=== PATIENT | female | born 1975 | race Caucasian/White ===

== ENCOUNTER 2025-07-25 10:16 | Day surgery (SDC) | payer OTHER ==
[2025-07-24 10:07] LABS: Absolute Lymphocytes (CBC) 1.8 K/uL (0.7-4.9); Hematocrit 35.4 % (36.0-45.0); Hemoglobin 11.5 g/dL (12.0-15.0); MCH 24.5 pg (27.0-35.0); MCHC 32.5 g/dL (32.0-36.0); MCV 75.5 fL (80-100); MPV 6.8 fL (7.6-11.3); Nucleated RBC Absolute Count 0.0 (0-0); Nucleated Red Blood Cells % 0.0 % (0-0); RBC Red Blood Cell Count 4.69 M/uL (3.86-4.86); White Blood Count 8.80 thou/uL (4.3-10.9)
[2025-07-24 10:16] LABS: Sqamous Epithelial <5 /HPF (None Seen); Urine Culture Reflex Order NOT NEEDED; Urine Microscopic Reflex YN ORDER UMIC
[2025-07-24 10:23] LABS: Anion Gap 7.6 mEq/L (5.0-15.0); BUN Blood Urea Nitrogen 20.0 mg/dL (7-18); Glucose Level 88.0 mg/dL (74-106); Potassium 3.6 mEq/L (3.5-5.1)
[2025-07-25] MEDS: Ringers Lactate 1,000 ML IV ONE ×2 (10:43→13:20)
[2025-07-25] MEDS: SCOPOLAMINE HYDROBROMIDE PATCH TD ONE (10:48)
[2025-07-25] MEDS ORDERED: ONDANSETRON 4 MG/2 ML VIAL ONE (11:07)
[2025-07-25] MEDS ORDERED: ROCURONIUM 50 MG/5 ML VIAL IV ONE (11:07)
[2025-07-25] MEDS ORDERED: KETAMINE HCL IN 0.9 % NACL 50 MG/5 ML SYRINGE IV ONE (11:07)
[2025-07-25] MEDS ORDERED: LIDOCAINE 1% MPF 5 ML VIAL ONE (11:07)
[2025-07-25] MEDS ORDERED: FENTANYL CITR 250 MCG/5 ML ONE (11:08)
[2025-07-25] MEDS ORDERED: MIDAZOLAM HCL 2 MG/2 ML INJ ONE (11:08)
[2025-07-25] MEDS: CEFAZOLIN SODIUM 2 GM/VIAL ONE (12:04)
[2025-07-25] MEDS: BUPIVACAINE 0.25% PF 30 ML VIAL ONE (12:36)
[2025-07-25] MEDS ORDERED: Mastisol Adhesive Liq ONE (13:10)
[2025-07-25] MEDS ORDERED: KETOROLAC 30 MG/ML INJ ONE (13:28)
[2025-07-25] MEDS: PROMETHAZINE INJ 25 MG/ML AMP ONE (14:33)
[2025-07-25 15:33] VITALS: BP 146/73; TEMP 97.2
[2025-07-25] MEDS: TRAMADOL HCL 50 MG TAB ONE (16:20)
[2025-07-25 17:03] VITALS: O2SAT 97
--- NOTE | 2025-07-25 21:41 | OP ---
Date of Procedure: 07/25/2025 Surgeon: Elinor Castillo MD Leather Piece Inspector: Mera Almazan. Preoperative Diagnosis: Postmenopausal bleeding. Postoperative Diagnosis: Postmenopausal bleeding. Procedure Performed: Total laparoscopic hysterectomy. Anesthesia: General endotracheal. Specimens: Uterus. Complications: No complications. Drains: No drains. Condition: The patient's condition is stable. Estimated Blood Loss: 25. Findings: No ovaries or tubes. Uterus small, mostly unremarkable. Abdomen, some bowel adhesions to the anterior abdominal wall. Indications: The patient is a 50-year-old, status post bilateral salpingo-oophorectomy, on hormonal therapy, started to have postmenopausal bleeding. Endometrium was slightly thickened. Endometrial s ampling was performed. However, there was no adequate tissue for evaluation. Discussed all the bene fits and risks including observation with followup using ultrasound and clinically versus hysterectom y. The patient wants to continue hormonal therapy safely and this was not postop and she has been consented. Description Of Procedure: In the preoperative area, she was reconsented. Her was present as well. After all their questions and answers were done to their satisfaction, she was taken back to the OR. She was placed in a supine fashion on the operating table. General anesthesia was given. 2 g of Anc ef was given. SCDs were placed. Abdomen was prepped with ChloraPrep; vulva, vagina, and perineum wi th Betadine and draped in a sterile fashion. Arms were tucked by the side. Positioning checked. Ti me-out done, and procedure started. Speculum was placed to expose the cervix. Anterior lip grasped with a single-tooth tenaculum. A lar ge cup uterine manipulator was introduced and fixed in place. Armando was placed to drain the bladder and attached to a drainage bag and this area was draped. 1-cm supraumbilical incision was made with a scalpel. She had an abdominoplasty and this was a damien r access site. Infiltrated with 0.25% Marcaine at the skin at all incision size and fascia. Then in cision made with an 11 blade on the skin and the fascia. Fascia was tagged with 0 Vicryl sutures on both sides. The peritoneum entered bluntly. S retractors were placed. Reed was introduced. Aft er adequate insufflation, the patient was placed in Trendelenburg position and a suprapubic 10 port a nd a left lower quadrant 5 ports were placed under direct vision and procedure started. The bowel adhesions in the left sigmoid were taken from the left lower quadrant. The anterior abdomi nal wall bowel adhesions were left in place in the right lateral wall. Anatomy of the ureter was undistorted as well as the bladder. The round ligament was taken down with the help of the LigaSure. Broad ligament as well as peritoneum opened anteriorly and posteriorly to raise the bladder flap and the posterior peritoneal incision was made. Vessels were exposed and ske letonized and taken down. Similarly, on the opposite side, round ligament and broad ligament were t aken down with the LigaSure. Then peritoneum connected anteriorly and posteriorly. Vessels were ske letonized, taken down with the LigaSure. Cardinal ligaments were also taken down. Circumferential c olpotomy performed with monopolar hook blade after the bladder was dissected inferiorly and created a t least a 1 cm space significantly below the level of the cup. Then, once the colpotomy was performe d and the specimen was detached, it was retrieved through the vagina. After a vaginal occluder was p laced, then vaginal cuff was closed with the help of 2 angle simple 0 PDS sutures and 2 [id number] ght in the middle. This closed the entire cuff with good support including the uterosacral ligaments . Thorough irrigation suction was performed and all pedicles were hemostatic. Trocars were removed under direct visualization. The patient was flattened out. Gas was desufflated. Umbilical port was removed. Fascia at the umbilicus was closed with the 0 Vicryl suture, tying done in a simple suprap ubic fascial stitch at that site. Skin incisions were closed with interrupted 4-0 Vicryl and the Fol ey and the vaginal occluder were removed. Instrument, needle, and sponge counts were correct at the end of the case. The patient tolerated the procedure well. She will follow up in 1 week and then in 4 weeks. CALOS/MARGARITA Voice ID: [id number] Report ID: [id number]
== END 2025-07-25 16:55 | disposition home or self-care (01) ==
LOC: OR 10:16
PROVIDERS: ATTEND Obstetrics & Gynecology
PROC: 0UT94ZZ Resection of Uterus, Percutaneous Endoscopic Approach (ICD-10-PCS; principal; 2025-07-25 11:30)
DX: N95.0 Postmenopausal bleeding (principal); D25.2 Subserosal leiomyoma of uterus
CPT/HCPCS: 85025; 81001; 80048; 36415; 86900; 86850; 86901; 88307; 58570; J3490; J2550; J2704; J2003; J2250; J3010; J1100; J2405; J7120 ×2; A4314; J1885